=== PATIENT | male | born 1970 | race Two or more races ===

== ENCOUNTER 2019-02-14 09:03 | Day surgery (SDC) | payer OTHER ==
[2019-02-13 09:08] VITALS: BMI 27.4
[2019-02-14] MEDS ORDERED: PROPOFOL 20 ML ONE (12:41)
[2019-02-14] MEDS ORDERED: ceFAZolin SODIUM 1 GM VIAL ONE (12:41)
[2019-02-14] MEDS ORDERED: MIDAZOLAM HCL 2 MG/2 ML SINGLE DOSE VIAL ONE (12:42)
[2019-02-14] MEDS ORDERED: ACETAMINOPHEN 325 MG TABLET (FP) PO PRN (12:54)
[2019-02-14] MEDS ORDERED: ceFAZolin SODIUM 1 GM VIAL IVPB ONE (13:23)
[2019-02-14] MEDS ORDERED: BUPIVACAINE HCL/PF 0.5% (5 MG/ML) 30 ML VIAL IJ ONE ×3 (13:34→13:38)
[2019-02-14] MEDS ORDERED: BACITRACIN 15 GM TUBE TOPICAL OINTMENT ONE (13:44)
[2019-02-14] MEDS ORDERED: DEXAMETHASONE SOD PHOSPHATE 4 MG/1 ML VIAL ONE (13:50)
--- NOTE | 2019-02-14 14:17 | OP ---
Operative Note - Note: Operative Date: 02/14/19 Pre-Operative Diagnosis: bph with luts, phimosis, penile chordee Operation: cysto, iou, penoplasty, circumcition, penile block Findings: deep uretheral stricture, bph and trabeculated bladder, penile chordee, phimosis Post-Operative Diagnosis: Same as Pre-op Surgeon: Rancho Ewing Anesthesia: Spinal, Local Specimens Removed: urine, penile forskin, penile scar tissue Estimated Blood Loss (mls): 20 Drains & Tubes with Location: none Drains, Volume Out (mls): 0 Blood Volume Replaced (mls): 0 Fluid Volume Replaced (mls): 0 Operative Report Dictated: Yes
[2019-02-14] MEDS ORDERED: oxyCODONE HCL 5 MG TABLET PO PRN (14:22)
[2019-02-14] MEDS ORDERED: IBUPROFEN 800 MG/8 ML IJ IVPB PRN (14:22)
[2019-02-14] MEDS ORDERED: ONDANSETRON 4 MG/2 ML VIAL IVPUSH PRN (14:22)
[2019-02-14] MEDS ORDERED: LACTATED RINGERS SOLUTION 1,000 ML IV SCH (14:30)
[2019-02-14 15:51] VITALS: TEMP 98.2
--- NOTE | 2019-02-14 16:44 | CONS ---
DATE OF CONSULTATION: DATE OF DICTATION: 02/14/2019 HISTORY OF PRESENT ILLNESS: Patient is a 48-year-old male with history of prostatism including frequency, urgency, nocturia x3 no dribbling. Also has history of hypogonadism. He is on testosterone replacement therapy. He does have history of adult onset diabetes and hypertension. He has undergone a left breast biopsy in the past. Presently he is on metformin, Myrbetriq and Flomax. PHYSICAL EXAMINATION: General: A well developed adult male. Abdomen: Soft. No CVA tenderness. Genitalia: Normal testes. No hernias or hydroceles are elicited. Phallus appears to be bent dorsally to about 30 degrees, foreskin is inflamed. The glands show a touch of balanitis. His prostate is 2+, smooth, benign, and nontender. Extremities: Reveal full range of motion with no cyanosis, clubbing, or edema. The patient's PSA is 4.1, BUN and creatinine are 9/0.7 respectively. The patient is admitted for a penoplasty and a cystoscopy. Procedure was explained slowly to patient in detail and he agrees. Annie [id number]
[2019-02-14 17:31] VITALS: BP 127/80; PULSE 75
--- NOTE | 2019-02-14 18:22 | OP ---
DATE OF OPERATION: 02/14/2019 PREOPERATIVE DIAGNOSIS: Micturition disorder, phimosis and penile chordae. POSTOPERATIVE DIAGNOSIS: Micturition disorder, phimosis and penile chordae. OPERATIVE PROCEDURE: Cystourethroscopy, optical internal urethrotomy, penoplasty, and circumcision. ANESTHESIA: General. DESCRIPTION OF PROCEDURE: Under above stated anesthesia, patient was prepped and draped in the usual sterile manner. He was placed in the dorsal lithotomy position. Cystoscopy under direct vision revealed a deep bulbous urethral stricture. An optical urethrotome was inserted. The stricture was excised at the 12 o'clock position. This was carried on up to the corpus spongiosum. No extravasation or bleeding was noted. The prostatic urethra was entered. This revealed trilobar hypertrophy of the prostate. The bladder was entered. This revealed a grade 1 trabeculation. Urine was collected for culture. No lesions or calculi were seen in the bladder. Dome and lateral vizcaino were clear. The bladder was emptied. Scope was removed. Patient was then repositioned and placed in the supine position. After proper prepping and draping, patient underwent a penoplasty as well as a circumcision. A tourniquet was placed at the base of the penis and 65 mL of normal saline was injected into the right corpora cavernosum. This revealed a 30 degree dorsal chordae of the midshaft of the penis. A circumferential incision was made around the cheng of the penis. This was carried down through skin and subcutaneous tissue. Using sharp and blunt dissection, the entire penile shaft was degloved. Periurethral tissue was lysed using cautery and sharp dissection. After the entire pendulous and penile urethra was freed, the distal end of the urethra was then anastomosed to the groove in the glans penis using 6-0 Vicryl suture ligatures. A repeat artificial erection revealed straightening of the penis. Excess foreskin was excised in a circumferential manner. Skin from the glans was approximated to skin from the shaft using 5-0 Vicryl suture ligatures. Pressure dressing was applied. Marcaine was then placed at the neurovascular bundle for alf analgesia. The patient tolerated the procedure well. He returned to the recovery room in good condition. Annie [id number]
--- NOTE | 2019-02-15 15:40 | PATH ---
Cytology Non-Gynecological Report Patient Name: CARLOS A JOSE [facility]. Rec. #: [id number] /Age/Gender: 1970 (Age: 48) / M Account: [id number] Location: [facility] SURGICAL Taken: 02/14/2019 Received: 02/14/2019 Reported: 02/15/2019 Physicians: Rancho Ewing M.D. Specimen(s) Received BLADDER URINE Clinical History Bladder urine Final Diagnosis BLADDER URINE FOR CYTOLOGY: SATISFACTORY FOR EVALUATION. NEGATIVE FOR HIGH GRADE UROTHELIAL CARCINOMA. RARE UROTHELIAL CELLS AND RARE RED BLOOD CELLS PRESENT. Comment: See concurrent biopsy ([id number]). Electronically Signed Serene Foster M.D. Gross Description Approximately 120 cc of yellow fluid received fresh. One cytofunnel prepared and Pap stained.
--- NOTE | 2019-02-16 18:32 | PATH ---
Surgical Pathology Report Patient Name: CARLOS A JOSE [facility]. Rec. #: [id number] /Age/Gender: 1970 (Age: 48) / M Account: [id number] Location: [facility] SURGICAL Taken: 02/14/2019 Received: 02/15/2019 Reported: 02/16/2019 Physicians: Rancho Ewing M.D. Specimen(s) Received A: FORESKIN B: PENILE SCAR TISSUE Clinical History Phimosis, balanitis Final Diagnosis A. FORESKIN, RESECTION: PORTION OF FORESKIN WITH FOCAL MILD NONSPECIFIC CHRONIC INFLAMMATION. B. PENILE SCAR TISSUE, EXCISION: PORTIONS OF SKIN WITH FOCAL FIBROSIS IN THE DERMIS. Electronically Signed Loly Kaplan M.D. Gross Description A. Received in formalin labeled "foreskin," is a 3.0 x 3.0 x 0.4 cm delatorre-brown portion of wrinkled skin, consistent with foreskin. No discrete epidermal lesions are identified. [employer] sections are submitted in one cassette. B. Received in formalin labeled "penile scar tissue," is a 1.0 x 1.0 x 0.2 cm aggregate of delatorre skin fragments. The specimen is entirely submitted in one cassette. /02/15/2019 saudi02/15/2019
== END 2019-02-14 17:43 | disposition home or self-care (01) ==
LOC: JASU-SURG 09:03
PROVIDERS: ATTEND Urology
PROC: 0VNS0ZZ Release Penis, Open Approach (ICD-10-PCS; 2019-02-14)
PROC: 0VTTXZZ Resection of Prepuce, External Approach (ICD-10-PCS; principal; 2019-02-14 11:00)
PROC: 0TND8ZZ Release Urethra, Via Natural or Artificial Opening Endoscopic (ICD-10-PCS; 2019-02-14 11:00)
DX: N47.1 Phimosis (principal); N48.1 Balanitis; N48.89 Other specified disorders of penis; R39.198 Other difficulties with micturition; I10 Essential (primary) hypertension; E11.9 Type 2 diabetes mellitus without complications; Z79.84 Long term (current) use of oral hypoglycemic drugs
CPT/HCPCS: 82962; 87086; 87186; 88304-TC; 94760